=== PATIENT | male | born 1960 | race Caucasian/White ===

== ENCOUNTER 2022-08-07 15:23 | Inpatient (IN) | payer BC ==
[~2022-08-07 15:23] MED LIST: Iopamidol 300 61% 100 ML VIAL FS ONE
[2022-08-07] MEDS ORDERED: Ondansetron PF 4 MG/2 ML Vial ONE (16:09)
[2022-08-07] MEDS ORDERED: Dexamethasone 10 MG/ML VIAL ONE (16:09)
[2022-08-07] MEDS ORDERED: Morphine 4 MG/ML VIAL ONE (16:09)
[2022-08-07 16:19] LABS: Hemoglobin 13.8 g/dL (13.5-17.5); Mean Corpuscular HGB CONC 32.9 g/dL (32.0-36.0); Mean Corpuscular Hemoglobin 29.1 pg (27.0-33.0); Mean Corpuscular Volume 88.4 fl (81.2-95.1); Mean Platelet Volume 9.8 fl (7.4-10.4); Platelet Count 425 10x3/uL (150-450); RBC Distribution Width 15.2 % (11.5-14.5); Red Blood Cell (RBC) Count 4.75 10x6/uL (4.32-5.72); White Blood Cell (WBC) Count 8.1 10x3/uL (3.5-10.5)
[2022-08-07 16:38] LABS: ALT (SGPT) 41 U/L (8-55); AST (SGOT) 15 U/L (5-34); Albumin 4.4 g/dL (3.4-4.8); Alkaline Phosphatase 127 U/L (40-110); Anion Gap 18 mmol/L (10-20); BUN (Urea Nitrogen) 19 mg/dL (8.4-25.7); Bilirubin, Total 0.6 mg/dL (0.2-1.2); Calc. Creatinine Clearance 0 mL/min (70-130); Calcium 9.9 mg/dL (7.8-10.44); Carbon Dioxide 23 mmol/L (23-31); Chloride 106 mmol/L (98-107); Estimated GFR 99; Glucose 219 mg/dL (80-115); Potassium 3.1 mmol/L (3.5-5.1); Protein, Total 7.4 g/dL (5.8-8.1); Sodium 144 mmol/L (136-145)
[2022-08-07 16:43] LABS: PTT 26.6 sec (22.0-33.0); Prothrombin Time 10.6 sec (9.5-12.1)
[2022-08-07 17:18] LABS: Lymphocytes 11 % (21-51); MDiff Complete? YES; Monocytes 18 % (0-10); Neutrophil 70 % (42-75); Platelet Morphology Comment Appears Adequate; RBC Morphology Normal; Reactive Lymphocytes 1 % (0-10)
[2022-08-07] MEDS ORDERED: Piperacillin/Tazobactam 4.5 GM VIAL ONE (17:23)
[2022-08-07] MEDS ORDERED: Acetaminophen 325 MG TAB PO PRN (18:28)
[2022-08-07] MEDS ORDERED: Ondansetron PF 4 MG/2 ML Vial IVP PRN (18:28)
[2022-08-07] MEDS ORDERED: Senokot S 8.6-50 MG TAB PO PRN (18:28)
[2022-08-07] MEDS ORDERED: Ondansetron ODT 4 MG TAB PO PRN (18:28)
[2022-08-07] MEDS ORDERED: Morphine 2 MG/ML VIAL SLOW IVP PRN (18:32)
[2022-08-07] MEDS ORDERED: Potassium Chloride 20 MEQ in Premix Bag 2 BAG IVPB ONE (18:34)
[2022-08-07] MEDS ORDERED: Potassium Chloride 20 MEQ in Premix Bag 2 BAG IVPB SCH (18:45)
[2022-08-07 18:48] LABS: Magnesium 2.2 mg/dL (1.6-2.6)
[2022-08-07] MEDS ORDERED: Potassium Chloride 20 MEQ/100 ML PREMIX BAG ONE (21:32)
[2022-08-07 21:36] LABS: Hemoglobin A1c 7.4 % (4.0-6.0)
[2022-08-07] MEDS ORDERED: Piperacillin/Tazobactam 3.375 GM VIAL ONE (22:05)
[2022-08-07] MEDS: Piperacillin/Tazobactam 3.375 GM in Sodium Chloride 0.9% 100 ML IVPB SCH (22:27)
[2022-08-07] MEDS: Sodium Chloride 0.9% 1,000 ML IV SCH (22:27)
[2022-08-07] MEDS: Potassium Chloride 20 MEQ in Premix Bag 1 BAG IVPB SCH (22:37)
[2022-08-07 23:05] LABS: SARS-CoV-2 NAA Rapid Test Not Detected (NotDetected)
[2022-08-08] MEDS ORDERED: Ketorolac Tromethamine 30 MG/ML VIAL ONE ×2 (00:48→06:08)
[2022-08-08] MEDS: Potassium Chloride 20 MEQ in Premix Bag 1 BAG IVPB SCH (00:56)
[2022-08-08] MEDS: Ketorolac Tromethamine 30 MG/ML VIAL IVP SCH ×5 (00:56→23:50)
[2022-08-08] MEDS ORDERED: Morphine 2 MG/ML VIAL ONE (01:48)
[2022-08-08 03:20] LABS: #Neutrophils 5.9 10x3/uL (1.5-8.4); %Basophils 0.1 % (0.0-2.0); %Lymphocytes 10.8 % (18.0-47.0); %Monocytes 12.5 % (0.0-10.0); %Neutrophils 75.7 % (40.0-75.0); Hemoglobin 10.9 g/dL (13.5-17.5); Mean Corpuscular HGB CONC 31.7 g/dL (32.0-36.0); Mean Corpuscular Hemoglobin 28.8 pg (27.0-33.0); Mean Platelet Volume 9.8 fl (7.4-10.4); Platelet Count 371 10x3/uL (150-450); RBC Distribution Width 15.3 % (11.5-14.5); Red Blood Cell (RBC) Count 3.78 10x6/uL (4.32-5.72); White Blood Cell (WBC) Count 7.8 10x3/uL (3.5-10.5)
[2022-08-08 03:26] LABS: Anion Gap 14 mmol/L (10-20); BUN (Urea Nitrogen) 16 mg/dL (8.4-25.7); Calc. Creatinine Clearance 0 mL/min (70-130); Calcium 8.9 mg/dL (7.8-10.44); Carbon Dioxide 23 mmol/L (23-31); Chloride 108 mmol/L (98-107); Estimated GFR 102; Glucose 294 mg/dL (80-115); Potassium 4.5 mmol/L (3.5-5.1); Sodium 140 mmol/L (136-145)
[2022-08-08] MEDS: Piperacillin/Tazobactam 3.375 GM in Sodium Chloride 0.9% 100 ML IVPB SCH ×3 (06:04→22:29)
[2022-08-08] MEDS ORDERED: Piperacillin/Tazobactam 3.375 GM VIAL ONE ×2 (06:08→14:07)
[2022-08-08] MEDS ORDERED: Dextrose 5% in Water 1,000 ML IV PRN ×2 (07:30→14:28)
[2022-08-08] MEDS ORDERED: Dextrose 50% Abboject 50 ML SYRINGE SLOW IVP PRN ×2 (07:30→14:28)
[2022-08-08] MEDS: Sodium Chloride 0.9% 1,000 ML IV SCH (07:50)
[2022-08-08] MEDS ORDERED: Pantoprazole 40 MG VIAL ONE (09:12)
[2022-08-08] MEDS: Pantoprazole 40 MG VIAL IVP SCH (09:25)
[2022-08-08] MEDS ORDERED: Lidocaine 1% w/Epinephrine 1:100K 30 ML VIAL ONE (11:49)
[2022-08-08] MEDS ORDERED: SUGAMMADEX SODIUM 200 MG/2 ML VIAL ONE (12:37)
[2022-08-08] MEDS ORDERED: Midazolam HCl 2 mg/2 ml Vial ONE (12:43)
[2022-08-08] MEDS ORDERED: Lidocaine 1% PF 5 ML VIAL ONE ×2 (12:43→12:46)
[2022-08-08] MEDS ORDERED: Dexamethasone 20 MG/5 ML VIAL ONE (12:43)
[2022-08-08] MEDS ORDERED: Fentanyl 100 MCG/2 ML VIAL ONE ×2 (12:43→13:47)
[2022-08-08] MEDS ORDERED: Ondansetron PF 4 MG/2 ML Vial ONE (12:43)
[2022-08-08] MEDS ORDERED: PROPOFOL 20 ML ONE ×2 (12:43→12:46)
[2022-08-08] MEDS ORDERED: Propofol 1,000 MG/100 ML VIAL IV ONE (14:11)
[2022-08-08] MEDS ORDERED: DISCONTINUE PREVIOUS NARCOTIC PAIN MEDICATIONS AND BENZODIAZEPINES FS SCH (14:15)
[2022-08-08] MEDS ORDERED: Fentanyl BOLUS 250 ML IVPB PRN (14:15)
[2022-08-08] MEDS ORDERED: Lorazepam 2 MG/ML VIAL SLOW IVP PRN (14:15)
[2022-08-08] MEDS ORDERED: Propofol BOLUS 1,000 MG/100 ML VIAL IV PRN (14:15)
[2022-08-08] MEDS ORDERED: Morphine 2 MG/ML VIAL SLOW IVP PRN (14:15)
[2022-08-08] MEDS ORDERED: Ventilator Sedation Protocol 1 EACH FS SCH (14:22)
[2022-08-08] MEDS ORDERED: Communication Order-Pharmacy FS SCH (14:22)
[2022-08-08] MEDS ORDERED: Vecuronium Bromide 50 MG in Sodium Chloride 0.9% 250 ML 250 ML IV SCH (14:30)
[2022-08-08] MEDS ORDERED: NOREPINEPHRINE 8 MG/250 ML-D5W 250 ML IVPB SCH (14:30)
[2022-08-08 14:52] VITALS: BMI 22.1
[2022-08-08] MEDS: FENTANYL 2,000MCG/100-0.9%NACL 100 ML IVPB SCH (15:18)
[2022-08-08] MEDS: [UNRECOGNIZED DRUG - OTHER] IV SCH (15:35)
[2022-08-08] MEDS: ADMIXTURE FEE IV SCH (15:35)
[2022-08-08] MEDS: VECURONIUM BROMIDE IV SCH (15:35)
[2022-08-08] MEDS ORDERED: Electrolyte Replacement Protocol 1 EACH FS SCH (17:15)
[2022-08-08] MEDS: Dextrose 5 %-0.45 % NaCl 1,000 ML IV SCH (17:36)
[2022-08-08] MEDS: Propofol 1,000 MG/100 ML VIAL IV PRN (18:23)
[2022-08-08] MEDS: HumaLOG 300 UNITS/3 ML VIAL SC PRN (21:49)
[2022-08-09] MEDS: VECURONIUM BROMIDE IV SCH ×2 (00:49→17:40)
[2022-08-09] MEDS: [UNRECOGNIZED DRUG - OTHER] IV SCH (00:49)
[2022-08-09] MEDS: ADMIXTURE FEE IV SCH (00:49)
[2022-08-09] MEDS: HumaLOG 300 UNITS/3 ML VIAL SC PRN ×2 (02:39→04:40)
[2022-08-09 04:20] LABS: Actual Bicarbonate (HCO3a) 25.9 mEq/L (22-28); Base Excess (BEa) 0.2 mEq/L (-2.0 to +3.0); CO2 Tension 46.4 mmHg (35.0-45.0); Hemoglobin (Hb) 11.2 g/dL (14.0-18.0); O2 Tension (PaO2), arterial 118.5 mmHg (> 80.0); Potassium - ABG Lab 3.7 mmol/L (3.70-5.30); Puncture Site RRA; pH, Arterial 7.37 (7.35-7.45)
[2022-08-09 04:23] LABS: Phosphorus 2.8 mg/dL (2.3-4.7)
[2022-08-09 04:43] LABS: Hemoglobin 9.9 g/dL (13.5-17.5); Mean Corpuscular HGB CONC 31.4 g/dL (32.0-36.0); Mean Corpuscular Hemoglobin 29.3 pg (27.0-33.0); Mean Corpuscular Volume 93.2 fl (81.2-95.1); Mean Platelet Volume 9.9 fl (7.4-10.4); Platelet Count 322 10x3/uL (150-450); RBC Distribution Width 15.5 % (11.5-14.5); Red Blood Cell (RBC) Count 3.38 10x6/uL (4.32-5.72); White Blood Cell (WBC) Count 5.1 10x3/uL (3.5-10.5)
[2022-08-09 05:06] LABS: MDiff Complete? YES
[2022-08-09 05:07] LABS: ALT (SGPT) 22 U/L (8-55); AST (SGOT) 9 U/L (5-34); Albumin 3.2 g/dL (3.4-4.8); Alkaline Phosphatase 79 U/L (40-110); Anion Gap 13 mmol/L (10-20); BUN (Urea Nitrogen) 10 mg/dL (8.4-25.7); Bilirubin, Total 0.3 mg/dL (0.2-1.2); Calc. Creatinine Clearance 115 mL/min (70-130); Calcium 7.9 mg/dL (7.8-10.44); Carbon Dioxide 25 mmol/L (23-31); Chloride 110 mmol/L (98-107); Estimated GFR 107; Glucose 224 mg/dL (80-115); Magnesium 2.3 mg/dL (1.6-2.6); Potassium 3.8 mmol/L (3.5-5.1); Protein, Total 5.2 g/dL (5.8-8.1); Sodium 144 mmol/L (136-145)
[2022-08-09] MEDS: Propofol 1,000 MG/100 ML VIAL IV PRN ×4 (05:17→18:38)
[2022-08-09] MEDS: Piperacillin/Tazobactam 3.375 GM in Sodium Chloride 0.9% 100 ML IVPB SCH ×3 (06:00→21:41)
[2022-08-09] MEDS: Dextrose 5 %-0.45 % NaCl 1,000 ML IV SCH ×2 (06:00→16:41)
[2022-08-09 06:54] LABS: Band 1 % (5-11); Lymphocytes 14 % (21-51); Monocytes 17 % (0-10); Neutrophil 68 % (42-75)
[2022-08-09] MEDS: Pantoprazole 40 MG VIAL IVP SCH (08:07)
[2022-08-09] MEDS: NOREPINEPHRINE 8 MG/250 ML-D5W 250 ML IVPB SCH (16:40)
[2022-08-09] MEDS ORDERED: Vecuronium 10 MG VIAL IVP PRN (17:03)
[2022-08-09] MEDS: [UNRECOGNIZED DRUG - OTHER] IV SCH (17:40)
[2022-08-09] MEDS: FENTANYL 2,000MCG/100-0.9%NACL 100 ML IVPB SCH (18:10)
[2022-08-10] MEDS: Propofol 1,000 MG/100 ML VIAL IV PRN ×5 (00:08→19:25)
[2022-08-10] MEDS: HumaLOG 300 UNITS/3 ML VIAL SC PRN ×5 (00:20→21:00)
[2022-08-10 03:48] LABS: Hemoglobin 10.6 g/dL (13.5-17.5); Mean Corpuscular HGB CONC 31.3 g/dL (32.0-36.0); Mean Corpuscular Volume 92.9 fl (81.2-95.1); Mean Platelet Volume 9.5 fl (7.4-10.4); Platelet Count 302 10x3/uL (150-450); RBC Distribution Width 15.2 % (11.5-14.5); Red Blood Cell (RBC) Count 3.65 10x6/uL (4.32-5.72)
[2022-08-10 04:11] LABS: ALT (SGPT) 17 U/L (8-55); AST (SGOT) 10 U/L (5-34); Alkaline Phosphatase 70 U/L (40-110); Anion Gap 15 mmol/L (10-20); BUN (Urea Nitrogen) 5 mg/dL (8.4-25.7); Bilirubin, Total 0.3 mg/dL (0.2-1.2); Calc. Creatinine Clearance 123 mL/min (70-130); Calcium 7.3 mg/dL (7.8-10.44); Carbon Dioxide 23 mmol/L (23-31); Chloride 106 mmol/L (98-107); Estimated GFR 109; Globulin 2.1 g/dL (2.4-3.5); Glucose 224 mg/dL (80-115); Potassium 3.5 mmol/L (3.5-5.1); Protein, Total 5.1 g/dL (5.8-8.1); Sodium 140 mmol/L (136-145)
[2022-08-10 04:21] LABS: MDiff Complete? YES
[2022-08-10 04:24] LABS: Band 2 % (5-11); Lymphocytes 24 % (21-51); Monocytes 21 % (0-10); Neutrophil 53 % (42-75)
[2022-08-10 04:26] LABS: Platelet Morphology Comment Appears Adequate; RBC Morphology Normal
[2022-08-10] MEDS: Dextrose 5 %-0.45 % NaCl 1,000 ML IV SCH ×2 (04:40→15:33)
[2022-08-10] MEDS: Piperacillin/Tazobactam 3.375 GM in Sodium Chloride 0.9% 100 ML IVPB SCH ×3 (05:37→22:02)
[2022-08-10] MEDS ORDERED: Potassium Chloride 20 MEQ in Premix Bag 1 BAG IVPB SCH (06:00)
[2022-08-10] MEDS ORDERED: Fentanyl 100 MCG/2 ML VIAL ONE (06:50)
[2022-08-10] MEDS ORDERED: Midazolam HCl 2 mg/2 ml Vial ONE (06:50)
[2022-08-10] MEDS ORDERED: Rocuronium Bromide 10 MG/ML (10ML VIAL) ONE (07:39)
[2022-08-10] MEDS ORDERED: Dexamethasone 20 MG/5 ML VIAL SLOW IVP SCH (08:00)
[2022-08-10] MEDS: Potassium Chloride 20 MEQ in Premix Bag 1 BAG IVPB SCH ×2 (08:39→11:30)
[2022-08-10] MEDS: Pantoprazole 40 MG VIAL IVP SCH (08:40)
[2022-08-10] MEDS: VECURONIUM BROMIDE IV SCH (09:00)
[2022-08-10] MEDS: [UNRECOGNIZED DRUG - OTHER] IV SCH (09:00)
[2022-08-10] MEDS: FENTANYL 2,000MCG/100-0.9%NACL 100 ML IVPB SCH (20:58)
[2022-08-11] MEDS: Propofol 1,000 MG/100 ML VIAL IV PRN ×2 (00:28→05:40)
[2022-08-11 04:14] LABS: Mean Corpuscular HGB CONC 31.6 g/dL (32.0-36.0); Mean Corpuscular Hemoglobin 28.9 pg (27.0-33.0); Mean Corpuscular Volume 91.6 fl (81.2-95.1); Mean Platelet Volume 9.8 fl (7.4-10.4); Platelet Count 318 10x3/uL (150-450); RBC Distribution Width 14.9 % (11.5-14.5)
[2022-08-11 04:25] LABS: Anion Gap 12 mmol/L (10-20); BUN (Urea Nitrogen) 6 mg/dL (8.4-25.7); Calc. Creatinine Clearance 127 mL/min (70-130); Calcium 7.4 mg/dL (7.8-10.44); Carbon Dioxide 25 mmol/L (23-31); Chloride 109 mmol/L (98-107); Estimated GFR 110; Glucose 194 mg/dL (80-115); MDiff Complete? YES; Magnesium 2.4 mg/dL (1.6-2.6); Potassium 4.1 mmol/L (3.5-5.1); Sodium 142 mmol/L (136-145)
[2022-08-11 04:31] LABS: Phosphorus 1.3 mg/dL (2.3-4.7)
[2022-08-11] MEDS ORDERED: Potassium Phosphate 22 MMOL in Sodium Chloride 0.9% 250 ML 250 ML IVPB SCH (05:00)
[2022-08-11] MEDS: Piperacillin/Tazobactam 3.375 GM in Sodium Chloride 0.9% 100 ML IVPB SCH ×3 (05:21→20:57)
[2022-08-11 05:22] LABS: Band 2 % (5-11); Lymphocytes 15 % (21-51); Monocytes 11 % (0-10); Neutrophil 70 % (42-75); Reactive Lymphocytes 2 % (0-10)
[2022-08-11 05:24] LABS: Macrocytosis SLIGHT = 6-15 cells (100X) (0-5/hpf); Ovalocytes SLIGHT = 2-5 cells (100X) (0-1/hpf); Platelet Morphology Comment Appears Adequate
[2022-08-11] MEDS: NOREPINEPHRINE 8 MG/250 ML-D5W 250 ML IVPB SCH (05:40)
[2022-08-11] MEDS ORDERED: Dexamethasone 20 MG/5 ML VIAL SLOW IVP ONE (06:00)
[2022-08-11] MEDS ORDERED: Dexamethasone 20 MG, Admixture Fee 1 EACH in Sodium Chloride 0.9% 50 ML IVPB SCH (06:00)
[2022-08-11] MEDS: Dextrose 5 %-0.45 % NaCl 1,000 ML IV SCH ×2 (08:28→19:38)
[2022-08-11] MEDS: Pantoprazole 40 MG VIAL IVP SCH (08:30)
[2022-08-11] MEDS: HumaLOG 300 UNITS/3 ML VIAL SC PRN ×2 (08:41→12:10)
[2022-08-11] MEDS ORDERED: Metoprolol Tartrate 5 MG/5 ML VIAL IVP PRN (15:48)
[2022-08-11] MEDS ORDERED: DC Sedation Protocol FS ONE (15:50)
[2022-08-11] MEDS ORDERED: Fentanyl 100 MCG/2 ML VIAL SLOW IVP PRN (15:51)
[2022-08-11] MEDS ORDERED: Naloxone HCl 2 MG, Admixture Fee 1 EACH in Sodium Chloride 0.9% 500 ML IV PRN (16:02)
[2022-08-11] MEDS ORDERED: Naloxone HCl 0.4 mg/ml Vial IV PRN (16:02)
[2022-08-11] MEDS ORDERED: Metoprolol Tartrate 5 MG/5 ML VIAL IVP SCH (16:15)
[2022-08-11 16:53] LABS: #Monocytes 1.1 10x3/uL (0.0-1.1); #Neutrophils 5.7 10x3/uL (1.5-8.4); %Basophils 0.3 % (0.0-2.0); %Lymphocytes 12.1 % (18.0-47.0); %Monocytes 13.5 % (0.0-10.0); %Neutrophils 73.3 % (40.0-75.0); Hemoglobin 12.4 g/dL (13.5-17.5); Mean Corpuscular HGB CONC 31.9 g/dL (32.0-36.0); Mean Corpuscular Hemoglobin 29.4 pg (27.0-33.0); Mean Corpuscular Volume 92.2 fl (81.2-95.1); Mean Platelet Volume 10.1 fl (7.4-10.4); Platelet Count 295 10x3/uL (150-450); RBC Distribution Width 14.7 % (11.5-14.5); Red Blood Cell (RBC) Count 4.22 10x6/uL (4.32-5.72); White Blood Cell (WBC) Count 7.8 10x3/uL (3.5-10.5)
[2022-08-11 17:16] LABS: Anion Gap 16 mmol/L (10-20); BUN (Urea Nitrogen) 7 mg/dL (8.4-25.7); Calc. Creatinine Clearance 114 mL/min (70-130); Calcium 8.2 mg/dL (7.8-10.44); Carbon Dioxide 21 mmol/L (23-31); Chloride 111 mmol/L (98-107); Estimated GFR 107; Glucose 225 mg/dL (80-115); Magnesium 2.4 mg/dL (1.6-2.6); Phosphorus Less than 1.0 mg/dL (2.3-4.7); Potassium 4.2 mmol/L (3.5-5.1); Sodium 144 mmol/L (136-145)
[2022-08-11 17:26] LABS: CKMB 2.7 ng/mL (0-6.6)
[2022-08-11] MEDS ORDERED: Potassium Phosphate 30 MMOL in Sodium Chloride 0.9% 250 ML 250 ML IVPB SCH (17:45)
[2022-08-11] MEDS: Metoprolol Tartrate 25 MG TAB PO SCH (20:57)
[2022-08-11] MEDS ORDERED: Metoprolol Tartrate 25 MG TAB PO SCH (21:00)
[2022-08-11 21:25] LABS: CKMB 2.9 ng/mL (0-6.6)
[2022-08-12 00:24] LABS: CKMB 2.8 ng/mL (0-6.6)
[2022-08-12 03:43] LABS: #Eosinphils 0.1 10x3/uL (0.0-0.5); #Monocytes 0.9 10x3/uL (0.0-1.1); #Neutrophils 4.2 10x3/uL (1.5-8.4); %Basophils 0.3 % (0.0-2.0); %Eosinophils 1.8 % (0.0-6.0); %Lymphocytes 20.1 % (18.0-47.0); %Monocytes 13.9 % (0.0-10.0); %Neutrophils 63.3 % (40.0-75.0); Hemoglobin 11.5 g/dL (13.5-17.5); Mean Corpuscular HGB CONC 31.5 g/dL (32.0-36.0); Mean Corpuscular Hemoglobin 28.8 pg (27.0-33.0); Mean Corpuscular Volume 91.3 fl (81.2-95.1); Mean Platelet Volume 10.1 fl (7.4-10.4); Platelet Count 275 10x3/uL (150-450); RBC Distribution Width 14.7 % (11.5-14.5); White Blood Cell (WBC) Count 6.6 10x3/uL (3.5-10.5)
[2022-08-12 04:01] LABS: Anion Gap 14 mmol/L (10-20); BUN (Urea Nitrogen) 9 mg/dL (8.4-25.7); Calc. Creatinine Clearance 119 mL/min (70-130); Calcium 7.6 mg/dL (7.8-10.44); Carbon Dioxide 17 mmol/L (23-31); Chloride 114 mmol/L (98-107); Estimated GFR 108; Glucose 214 mg/dL (80-115); Magnesium 2.2 mg/dL (1.6-2.6); Potassium 3.4 mmol/L (3.5-5.1); Sodium 142 mmol/L (136-145)
[2022-08-12 04:05] LABS: Phosphorus 1.1 mg/dL (2.3-4.7)
[2022-08-12 04:20] LABS: CKMB 2.6 ng/mL (0-6.6)
[2022-08-12] MEDS ORDERED: Potassium Phosphate 22 MMOL in Sodium Chloride 0.9% 250 ML 250 ML IVPB SCH (05:00)
[2022-08-12] MEDS: Piperacillin/Tazobactam 3.375 GM in Sodium Chloride 0.9% 100 ML IVPB SCH ×3 (05:32→21:45)
[2022-08-12] MEDS: Dextrose 5 %-0.45 % NaCl 1,000 ML IV SCH ×2 (05:33→15:50)
[2022-08-12] MEDS: Metoprolol Tartrate 25 MG TAB PO SCH ×2 (08:47→21:45)
[2022-08-12] MEDS: Pantoprazole 40 MG VIAL IVP SCH (08:48)
[2022-08-12] MEDS: HumaLOG 300 UNITS/3 ML VIAL SC PRN ×2 (09:03→15:47)
[2022-08-12] MEDS ORDERED: Simethicone Chewable 80 MG TAB PO PRN (13:53)
[2022-08-13 03:37] LABS: #Monocytes 0.7 10x3/uL (0.0-1.1); #Neutrophils 4.5 10x3/uL (1.5-8.4); %Basophils 0.5 % (0.0-2.0); %Eosinophils 0.2 % (0.0-6.0); %Lymphocytes 17.5 % (18.0-47.0); %Monocytes 11.5 % (0.0-10.0); %Neutrophils 69.7 % (40.0-75.0); Hemoglobin 12.9 g/dL (13.5-17.5); Mean Corpuscular Hemoglobin 28.8 pg (27.0-33.0); Mean Platelet Volume 10.3 fl (7.4-10.4); Platelet Count 280 10x3/uL (150-450); RBC Distribution Width 14.8 % (11.5-14.5); Red Blood Cell (RBC) Count 4.48 10x6/uL (4.32-5.72); White Blood Cell (WBC) Count 6.5 10x3/uL (3.5-10.5)
[2022-08-13 03:51] LABS: Anion Gap 14 mmol/L (10-20); BUN (Urea Nitrogen) 7 mg/dL (8.4-25.7); Calc. Creatinine Clearance 119 mL/min (70-130); Calcium 8.3 mg/dL (7.8-10.44); Carbon Dioxide 18 mmol/L (23-31); Chloride 111 mmol/L (98-107); Estimated GFR 108; Glucose 200 mg/dL (80-115); Potassium 3.3 mmol/L (3.5-5.1); Sodium 140 mmol/L (136-145)
[2022-08-13 03:54] LABS: Phosphorus Less than 1.0 mg/dL (2.3-4.7)
[2022-08-13] MEDS: Dextrose 5 %-0.45 % NaCl 1,000 ML IV SCH ×2 (04:28→09:21)
[2022-08-13] MEDS ORDERED: Potassium Phosphate 30 MMOL in Sodium Chloride 0.9% 250 ML 250 ML IVPB SCH (04:30)
[2022-08-13] MEDS: Piperacillin/Tazobactam 3.375 GM in Sodium Chloride 0.9% 100 ML IVPB SCH (05:26)
[2022-08-13] MEDS: Pantoprazole 40 MG VIAL IVP SCH (07:45)
[2022-08-13] MEDS: Metoprolol Tartrate 25 MG TAB PO SCH (07:45)
[2022-08-13 10:51] VITALS: TEMP 97.9
[2022-08-13 11:19] VITALS: BP 138/110
== END 2022-08-13 11:00 | disposition home or self-care (01) | DRG 137 ==
LOC: CSHERS 15:23 → CSHERHOLD 22:23 → CSHICU 08-08 13:49 → OBSVTOIN 08-08 14:22
PROVIDERS: ADMIT Family Medicine; ATTEND Family Medicine
PROC: 0W930ZZ Drainage of Oral Cavity and Throat, Open Approach (ICD-10-PCS; principal; 2022-08-08)
PROC: 5A1945Z Respiratory Ventilation, 24-96 Consecutive Hours (ICD-10-PCS; 2022-08-08)
PROC: 0BH17EZ Insertion of Endotracheal Airway into Trachea, Via Natural or Artificial Opening (ICD-10-PCS; 2022-08-08)
PROC: 4A133R1 Monitoring of Arterial Saturation, Peripheral, Percutaneous Approach (ICD-10-PCS; 2022-08-08)
PROC: 0CB7XZX Excision of Tongue, External Approach, Diagnostic (ICD-10-PCS; 2022-08-10)
PROC: 0CJS8ZZ Inspection of Larynx, Via Natural or Artificial Opening Endoscopic (ICD-10-PCS; 2022-08-10)
DX: K14.0 Glossitis (principal); J96.01 Acute respiratory failure with hypoxia; C90.00 Multiple myeloma not having achieved remission; E87.0 Hyperosmolality and hypernatremia; G89.29 Other chronic pain; E87.6 Hypokalemia; F17.210 Nicotine dependence, cigarettes, uncomplicated; I10 Essential (primary) hypertension; E11.65 Type 2 diabetes mellitus with hyperglycemia; D64.9 Anemia, unspecified; I95.9 Hypotension, unspecified; R13.10 Dysphagia, unspecified; Z98.890 Other specified postprocedural states; Z20.822 Contact with and (suspected) exposure to COVID-19; Z79.899 Other long term (current) drug therapy; Z82.49 Family history of ischemic heart disease and other diseases of the circulatory system; Z80.49 Family history of malignant neoplasm of other genital organs
CPT/HCPCS: 36415; 36416; 36600; 70492; 71045; 80048; 80053; 82553; 82805; 83036; 83605; 83735; 84100; 84443; 84484; 85025; 85610; 85730; 86140; 87070; 87205; 88305; 88312; 88342; 93005; 93010; 94002; 94003; 94150; 94760; 96375; 96376; C9113; G0378; J1100; J1650; J1815; J1885; J2250; J2270; J2272; J2405; J2543; J2704; J3010; J3480; J3490; J7042; J7050; Q9967; U0002